=== PATIENT | male | born 1980 | race Caucasian/White ===

== ENCOUNTER 2016-08-07 19:40 | Emergency (ER) | payer SELFPAY ==
[2016-08-07 19:57] VITALS: BP 123/77
[2016-08-07] MEDS ORDERED: Sulfamethox/Trimethoprim DS 800/160* TAB PO ONE (20:12)
[2016-08-07] MEDS ORDERED: Ibuprofen TAB* 600 MG PO ONE (20:12)
--- NOTE | 2016-08-07 20:12 | UC ---
Upper Extremity HPI - HPI Summary HPI Summary: Painful red lump in R armpit. Started as a small bump around a week ago. - History of Current Complaint Chief Complaint: UCSkin Stated Complaint: SORE UNDER ARM Time Seen by Provider: 08/07/16 19:59 Hx Obtained From: Patient ?: No Onset/Duration: Gradual Onset, Lasting Days Severity Initially: Mild Severity Currently: Moderate Character: Dull, Aching Associated Signs And Symptoms: Positive: Swelling, Redness - Allergies/Home Medications Allergies/Adverse Reactions: Allergies Allergy/AdvReac Type Severity Reaction Status Date / Time No Known Allergies Allergy Verified 08/07/16 19:57 PMH/Surg Hx/FS Hx/Imm Hx Endocrine History Of: Denies: Diabetes, Thyroid Disease Cardiovascular History Of: Denies: Cardiac Disorders, Hypertension Respiratory History Of: Denies: COPD, Asthma GI/ History Of: Denies: Ulcer - Surgical History Surgical History: None - Family History Known Family History: Positive: Hypertension - Social History Alcohol Use: Rare Substance Use Type: None Smoking Status (MU): Current Every Day Smoker Type: Cigarettes Amount Used/How Often: <1/2 PPD Length of Time of Smoking/Using Tobacco: TOTAL ABOUT 17 YEARS Review of Systems Constitutional: Negative Skin: Other - painful lump Eyes: Negative ENT: Negative Respiratory: Negative Cardiovascular: Negative Gastrointestinal: Negative Genitourinary: Negative Motor: Negative Neurovascular: Negative Musculoskeletal: Negative Neurological: Negative Psychological: Negative All Other Systems Reviewed And Are Negative: Yes Physical Exam Triage Information Reviewed: Yes Appearance: Well-Appearing, Well-Nourished, Pain Distress - mild Vital Signs: Initial Vital Signs Temp 98.4 F 08/07/16 19:54 Pulse 90 08/07/16 19:54 Resp 16 08/07/16 19:54 BP 123/77 08/07/16 19:54 Pulse Ox 99 08/07/16 19:54 Vital Signs Reviewed: Yes Eye Exam: Normal Eyes: Positive: Conjunctiva Clear ENT Exam: Normal ENT: Positive: Normal ENT inspection, Hearing grossly normal, Pharynx normal, TMs normal Neck exam: Normal Neck: Positive: Supple, Nontender, No Lymphadenopathy Respiratory Exam: Normal Respiratory: Positive: Chest non-tender, Lungs clear, Normal breath sounds, No respiratory distress, No accessory muscle use Cardiovascular Exam: Normal Cardiovascular: Positive: RRR, No Murmur Musculoskeletal Exam: Normal Musculoskeletal: Positive: ROM Intact Neurological Exam: Normal Neurological: Positive: Alert Psychological Exam: Normal Skin Exam: Other - 5cm x 4cm abscess and 3cm x 1.5cm abscess in R axilla surrounded by 15cm x 15cm irreg area of cellulitis Procedures - Incision and Drainage Site: R axilla Anesthesia: Local - 4mL, Lidocaine - 1% Instrument(s): Scalpel - large pus return Upper Extremity Course/Dx - Differential Dx/Diagnosis Provider Diagnoses: R axillary abscesses incision and drainage. R axillary cellulitis. elevated blood pressure due to pain Discharge - Discharge Plan Condition: Stable Disposition: HOME Prescriptions: Naproxen Sodium [Naproxen Sodium 500 MG TAB] 500 mg PO BID #20 tab Sulfamethox/Trimethoprim DS* [Bactrim DS 800/160 TAB*] 1 tab PO BID #10 tab Patient Education Materials: Warm Compress or Soak (ED), Incision and Drainage (ED) Additional Instructions: If you are not improving within 2 days, return here for recheck. If you have significant worsening at any time, please go to the emergency department. Do frequent warm compresses for the next 48 hours to encourage drainage.
[2016-08-07] MEDS ORDERED: Lidocaine 1% MPF* 2 ML VIAL INJ ONE (20:19)
== END 2016-08-07 21:06 | disposition home or self-care (01) ==
LOC: UCEAST 19:40
DX: L02.411 Cutaneous abscess of right axilla (principal); F17.210 Nicotine dependence, cigarettes, uncomplicated
CPT/HCPCS: 10060; 87070; 87077; 87186; 87205; 87640; 87641; 99212; 99213; A9270-GY; G0463